=== PATIENT | female | born 1975 | race Caucasian/White ===

== ENCOUNTER 2018-08-21 19:43 | Inpatient (IN) | payer OTHER ==
[~2018-08-21] VITALS: Ht 160 cm; Wt 76.2 kg
[2018-08-21] MEDS ORDERED: RINGERS SOLUTION,LACTATED 1,000 ML IV PRN (20:43)
[2018-08-21] MEDS ORDERED: OXYTOCIN 30 UNITS/LACT RINGERS 500 ML IV ONE (20:43)
[2018-08-21] MEDS ORDERED: METOCLOPRAMIDE HCL 5 MG/ML 2 ML VIAL IVP PRN (20:45)
[2018-08-21] MEDS ORDERED: CITRIC ACID/SODIUM CITRATE 30 ML SOLUTION UDCUP PO PRN (20:45)
[2018-08-21] MEDS ORDERED: LIDOCAINE/PF 1% 30 ML VIAL INJ PRN (20:45)
[2018-08-21] MEDS ORDERED: METHYLERGONOVINE MALEATE 0.2 MG/ML VIAL IM PRN (20:45)
[2018-08-21 21:14] LABS: BASOPHILS % (AUTO) 0.6 % (0.0-2.0); EOSINOPHILS % (AUTO) 0.6 % (1.0-6.0); HEMATOCRIT 37.3 % (36-46); LYMPHOCYTES # (AUTO) 1.9 K/uL (1.0-4.8); LYMPHOCYTES % (AUTO) 22.3 % (22.0-44.0); MEAN CORPUSCULAR HEMOGLOBIN 32.2 pg (26.0-34.0); MEAN CORPUSCULAR HGB CONC 34.9 G/dL (31.0-37.0); MEAN CORPUSCULAR VOLUME 92 fL (80-100); MONOCYTES # (AUTO) 0.7 K/uL (0.1-1.0); MONOCYTES % (AUTO) 7.8 % (2.0-9.0); NEUTROPHILS # (AUTO) 5.8 K/uL (1.8-7.7); NEUTROPHILS % (AUTO) 68.7 % (40.0-70.0); PLATELET COUNT (AUTO)-OB 182 K/uL (150-450); RED BLOOD CELL COUNT(AUTO) 4.04 MIL/uL (4.00-5.20); RED CELL DISTRIBUTION WIDTH 12.4 % (11.5-14.5)
[2018-08-21] MEDS ORDERED: RINGERS SOLUTION,LACTATED 1,000 ML IV ONE (21:31)
[2018-08-21] MEDS ORDERED: AMPICILLIN SODIUM 2 GM/NS 100 ML IV ONE (22:00)
[2018-08-21 22:21] VITALS: BP 126/82
[2018-08-21] MEDS ORDERED: PREN1TAB80 PO (22:34)
[2018-08-21] MEDS: MISOPROSTOL 25 MCG TABLET VG SCH (23:13)
[2018-08-22] MEDS: RINGERS SOLUTION,LACTATED 1,000 ML IV SCH ×7 (03:04→21:32)
[2018-08-22] MEDS: AMPICILLIN SODIUM 1 GM/NS 50 ML IV SCH ×5 (03:05→19:01)
[2018-08-22] MEDS: MISOPROSTOL 25 MCG TABLET VG SCH (03:09)
[2018-08-22] MEDS ORDERED: OXYGEN THERAPY IH SCH (08:00)
[2018-08-22] MEDS ORDERED: DINOPROSTONE 10 MG VAGINAL SUPPOSITORY VG ONE (09:45)
[2018-08-22] MEDS: FentaNYL CITRATE-PF 100 MCG/2 ML VIAL IVP PRN ×2 (14:18→14:53)
[2018-08-22] MEDS ORDERED: LIDOCAINE/PF 2% 5 ML VIAL ONE (14:41)
[2018-08-22] MEDS ORDERED: ROPIVACAINE HCL/PF 0.2% 100 ML ED ONE (14:41)
[2018-08-22] MEDS ORDERED: DiphenhydrAMINE HCL 50 MG/ML VIAL IVP PRN (15:15)
[2018-08-22] MEDS ORDERED: ROPIVACAINE HCL/PF 0.2% 100 ML ED PRN (15:15)
[2018-08-22] MEDS ORDERED: NALBUPHINE HCL 10 MG/ML VIAL IVP PRN (15:15)
[2018-08-22] MEDS ORDERED: ONDANSETRON HCL 4 MG/2 ML VIAL IVP PRN (15:15)
[2018-08-22] MEDS ORDERED: OXYTOCIN 30 UNITS/LACT RINGERS 500 ML IV PRN (15:53)
[2018-08-23] MEDS ORDERED: METHYLERGONOVINE MALEATE 0.2 MG TABLET PO PRN (00:30)
[2018-08-23] MEDS ORDERED: OxyCODONE HCL/ACETAMINOPHEN 5-325 MG TABLET PO PRN ×2 (00:30)
[2018-08-23] MEDS ORDERED: BENZOCAINE 20%/MENTHOL 56 GM SPRAY CANISTER TP PRN (00:30)
[2018-08-23] MEDS ORDERED: LANOLIN 7 GM OINTMENT TP PRN (00:30)
[2018-08-23] MEDS ORDERED: GLYCERIN/WITCH HAZEL LEAF 40 PADS JAR TP PRN (00:30)
[2018-08-23 05:25] LABS: BASOPHILS % (AUTO) 0.2 % (0.0-2.0); EOSINOPHILS % (AUTO) 0.1 % (1.0-6.0); HEMATOCRIT 30.1 % (36-46); HEMOGLOBIN 10.8 g/dL (12.0-16.0); LYMPHOCYTES # (AUTO) 1.3 K/uL (1.0-4.8); LYMPHOCYTES % (AUTO) 10.5 % (22.0-44.0); MEAN CORPUSCULAR HEMOGLOBIN 33.4 pg (26.0-34.0); MEAN CORPUSCULAR HGB CONC 35.8 G/dL (31.0-37.0); MEAN CORPUSCULAR VOLUME 93 fL (80-100); MONOCYTES # (AUTO) 0.8 K/uL (0.1-1.0); MONOCYTES % (AUTO) 6.6 % (2.0-9.0); NEUTROPHILS # (AUTO) 10.3 K/uL (1.8-7.7); NEUTROPHILS % (AUTO) 82.6 % (40.0-70.0); PLATELET COUNT (AUTO)-OB 156 K/uL (150-450); RED BLOOD CELL COUNT(AUTO) 3.23 MIL/uL (4.00-5.20); RED CELL DISTRIBUTION WIDTH 12.2 % (11.5-14.5)
[2018-08-23] MEDS: IBUPROFEN 800 MG TABLET PO PRN (08:01)
[2018-08-23] MEDS: MAGNESIUM HYDROXIDE SUSPENSION 30 ML UDCUP PO PRN ×2 (08:43→21:04)
[2018-08-23] MEDS: SENNA/DOCUSATE SODIUM 8.6-50 MG TABLET PO PRN ×2 (08:44→21:04)
[2018-08-23] MEDS ORDERED: DSS100 PO (12:36)
[2018-08-24] MEDS: IBUPROFEN 800 MG TABLET PO PRN (07:46)
[2018-08-24] MEDS: SENNA/DOCUSATE SODIUM 8.6-50 MG TABLET PO PRN (07:46)
[2018-08-24] MEDS: MAGNESIUM HYDROXIDE SUSPENSION 30 ML UDCUP PO PRN (07:46)
[2018-08-24] MEDS ORDERED: IBUP-2071 PO (09:09)
[2018-08-24] MEDS ORDERED: FERR-89 PO (09:11)
== END 2018-08-24 10:40 | disposition home or self-care (01) | DRG 768 ==
LOC: 4S 19:43 → OBSVTOIN 19:43
PROVIDERS: ADMIT Specialist; ATTEND Specialist
PROC: 10D07Z6 Extraction of Products of Conception, Vacuum, Via Natural or Artificial Opening (ICD-10-PCS; principal; 2018-08-23)
PROC: 0DQR0ZZ Repair Anal Sphincter, Open Approach (ICD-10-PCS; 2018-08-23)
PROC: 3E0R3BZ Introduction of Anesthetic Agent into Spinal Canal, Percutaneous Approach (ICD-10-PCS; 2018-08-23)
PROC: 00HU33Z Insertion of Infusion Device into Spinal Canal, Percutaneous Approach (ICD-10-PCS; 2018-08-23)
PROC: 0W8NXZZ Division of Female Perineum, External Approach (ICD-10-PCS; 2018-08-23)
DX: O70.20 Third degree perineal laceration during delivery, unspecified (principal); Z37.0 Single live birth; Z3A.40 40 weeks gestation of pregnancy
CPT/HCPCS: 86850; 86900; 86901; J0290; J2590; J2795; J3010; J3490; J7120